=== PATIENT | male | born 2000 | race Caucasian/White ===

== ENCOUNTER 2021-01-14 18:07 | Emergency (ER) | payer BC ==
[2021-01-14 18:12] VITALS: BP 140/89; PULSE 78; RESP 16; TEMP 97.9
[2021-01-14] MEDS ORDERED: LIDOCAINE VISCOUS 2% 15 ML CUP MUCOUS MEM ONE (19:01)
[2021-01-14] MEDS ORDERED: DEXAMETHASONE SOD PHOSPHATE 10 MG/ML 1 ML VIAL PO STA (19:02)
--- NOTE | 2021-01-14 20:29 | ED ---
General Adult HPI - General Chief complaint: Skin/Abscess/Foreign Body Stated complaint: something in throat Source: patient Mode of arrival: ambulatory Limitations: no limitations - History of Present Illness Initial comments: Patient is a 20-year-old male presents emergency department with a foreign body sensation in his throat. Patient states he was eating sunflower seeds with the shell approximately 20 minutes prior to arrival and felt as if he got stuck in his throat. Reports he began coughing and coughed up some blood. Presents today with pain in the left posterior pharynx. Denies inability to swallow secretions. No shortness of breath. Patient did not take any medications for his discomfort. No history of any esophageal foreign body. No other alleviating, precipitating or modifying factors - Related Data Home Medications Medication Instructions Recorded Confirmed No Known Home Medications 01/14/21 01/14/21 Allergies Allergy/AdvReac Type Severity Reaction Status Date / Time No Known Allergies Allergy Verified 01/14/21 19:29 Review of Systems ROS Statement: Those systems with pertinent positive or pertinent negative responses have been documented in the HPI. ROS Other: All systems not noted in ROS Statement are negative. Past Medical History Past Medical History: No Reported History History of Any Multi-Drug Resistant Organisms: None Reported Additional Past Surgical History / Comment(s): left arm, Past Psychological History: No Psychological Hx Reported Smoking Status: Never smoker Past Alcohol Use History: None Reported Past Drug Use History: None Reported General Exam Limitations: no limitations Course Vital Signs 01/14/21 18:09 Temperature 97.9 F Pulse Rate 78 Respiratory 16 Rate Blood Pressure 140/89 O2 Sat by Pulse 100 Oximetry Medical Decision Making - Medical Decision Making Upon arrival the patient was placed into room 4. Thorough history and physical exam was performed. Patient does not demonstrate any signs of drooling, stridor, hoarseness. Patient is given viscous lidocaine and a dose of Decadron. He is reevaluated and reports that he does have some improvement in sensation in the back of his throat. I discussed diagnosis, differential and treatment options. He will be discharged home at this time and given follow-up information for ENT. Patient is instructed that if he continues to have symptoms to call Saturday for an appointment for possible scope. Return to the emergency room for any new or worsening symptoms. The patient was discharged in stable condition Disposition Clinical Impression: Esophageal foreign body Disposition: HOME SELF-CARE Condition: Stable Instructions (If sedation given, give patient instructions): Esophageal Foreign Body (ED) Additional Instructions: Please follow up with the ENT if your symptoms continue. Return to the ED for any new or worsening symptoms. Is patient prescribed a controlled substance at d/c from ED?: No Referrals: Rigo Mcarthur MD [Primary Care Provider] - 1-2 days Tereso Levy DO [Doctor of Osteopathic Medicine] - 1-2 days Time of Disposition: 20:29
== END 2021-01-14 20:40 | disposition home or self-care (01) ==
LOC: EC 18:07
DX: T18.128A Food in esophagus causing other injury, initial encounter (principal); X58.XXXA Exposure to other specified factors, initial encounter
CPT/HCPCS: 99283; J1100